=== PATIENT | female | born 1955 | race Caucasian/White ===

== ENCOUNTER 2020-12-04 09:24 | Emergency (ER) | payer MEDICARE, OTHER ==
[~2020-12-04 09:24] MED LIST: AMITRIPTYLINE H50 MG PO; BARIATRIC MVI; BENADRYL 25MG C25 MG PO; BISOPROLOL-HCT1 EAC2 PO; CHLORTHALIDONE25 MG PO; CIPRO500 MG PO; COLACE 100MG C100 MG PO; EFFEXOR XR 75 M75 MG PO; EFFEXOR XR75 MG PO; ELAVIL 50 MG TA50 MG PO; FISH OIL 1,2001 EAC1 PO; FISH OIL 1,2001 EAC2 PO; HAIR, SKIN & N1 EACH PO; HAIR,SKIN AND NAILS PO; HYDROXYZINE HCL25 MG PO; IRON PO; LIPITOR TAB 1010 MG PO; NORCO 5-325 TA1 EACH PO; PLAVIX 75 MG TA75 MG PO; PLAVIX75 MG PO; PROBIOTIC1 EAC3 PO; PROTONIX40 MG PO; REGLAN5 MG PO; TOPAMAX100 MG PO; ULTRAM50 MG PO; VISTARIL25 MG PO; ZEBETA 5 MG TAB5 MG PO
[2020-12-04] MEDS ORDERED: ULTRA-LIGHT RO1 EACH MC (11:31)
[2020-12-04] MEDS ORDERED: PERCOCET 5/325 T1 EA PO (11:38)
== END 2020-12-04 12:40 | disposition home or self-care (01) ==
LOC: ER1 09:24
DX: S32.501A Unspecified fracture of right pubis, initial encounter for closed fracture (principal); I10 Essential (primary) hypertension; E11.9 Type 2 diabetes mellitus without complications; Z86.73 Personal history of transient ischemic attack (TIA), and cerebral infarction without residual deficits; Z88.1 Allergy status to other antibiotic agents; Z88.6 Allergy status to analgesic agent; W18.09XA Striking against other object with subsequent fall, initial encounter; Y92.410 Unspecified street and highway as the place of occurrence of the external cause
CPT/HCPCS: 73700; 99283

== ENCOUNTER → 2020-12-15 | Outpatient (CLI) | payer MEDICARE, OTHER ==
[~2020-12-15] MED LIST changes: +PERCOCET 5/325 T1 EA PO; +ULTRA-LIGHT RO1 EACH MC
[2020-12-15 13:44] LABS: HEMOGLOBIN 13.2 gm/dl (12.3-15.3); RED BLOOD COUNT 4.37 M/UL (4.00-5.10); WHITE BLOOD COUNT 8.6 K/UL (4.5-11.0)
[2020-12-15 14:06] LABS: BUN/CREATININE RATIO 28 (0-10)
== END ==
LOC: LAB 12:13
PROVIDERS: Internal Medicine
DX: I10 Essential (primary) hypertension (principal); R73.03 Prediabetes
CPT/HCPCS: 36415; 80048; 80061; 80076; 83036; 84443; 85025

== ENCOUNTER → 2021-07-04 | Outpatient (CLI) | payer MEDICARE ==
[2021-07-04 13:52] LABS: HEMOGLOBIN 11.1 gm/dl (12.3-15.3); RED BLOOD COUNT 3.96 M/UL (4.00-5.10); WHITE BLOOD COUNT 6.7 K/UL (4.5-11.0)
[2021-07-04 14:20] LABS: BUN/CREATININE RATIO 19 (0-10)
== END ==
LOC: LAB 12:50
PROVIDERS: Internal Medicine
DX: Z11.59 Encounter for screening for other viral diseases (principal); E78.5 Hyperlipidemia, unspecified; R73.03 Prediabetes
CPT/HCPCS: 36415; 80048; 80061; 80076; 83036; 84443; 85025; 86803

== ENCOUNTER → 2021-10-16 | Outpatient (CLI) | payer MEDICARE ==
[2021-10-16 13:16] LABS: HEMOGLOBIN 11.7 gm/dl (12.3-15.3); RED BLOOD COUNT 4.23 M/UL (4.00-5.10); WHITE BLOOD COUNT 6.6 K/UL (4.5-11.0)
[2021-10-16 13:48] LABS: BUN/CREATININE RATIO 15 (0-10)
== END ==
LOC: LAB 12:39
PROVIDERS: Internal Medicine
DX: M10.9 Gout, unspecified (principal); E78.5 Hyperlipidemia, unspecified; I10 Essential (primary) hypertension; R73.03 Prediabetes
CPT/HCPCS: 36415; 80048; 80061; 80076; 83036; 84443; 85025